=== PATIENT | female | born 1950 | race Caucasian/White ===

== ENCOUNTER 2020-12-15 08:00 | Outpatient (CLI) | payer MEDICARE, OTHER ==
[~2020-12-15 08:00] MED LIST: ALPR1TAB2 PO
[2020-12-15] MEDS ORDERED: GADOTERATE 7.5 MMOL/15ML SYR ONE (13:25)
== END 2020-12-15 23:59 | disposition home or self-care (01) ==
LOC: RAD 08:00
PROVIDERS: ATTEND Registered Nurse
DX: R41.3 Other amnesia (principal)
CPT/HCPCS: 70553; A9575